=== PATIENT | female | born 1990 | race Caucasian/White ===

== ENCOUNTER → 2017-08-13 | Outpatient (CLI) | payer OTHER | LOC: M RAD 15:51 | DX: N92.6 Irregular menstruation, unspecified (principal); Q51.6 Embryonic cyst of cervix; N83.291 Other ovarian cyst, right side | CPT/HCPCS: 76856 ==

== ENCOUNTER → 2021-06-14 | Outpatient (CLI) | payer OTHER ==
[~2021-06-14] MED LIST: DOXY100T OR; IBUP800T OR; METHYLERGONOVINE PO
[2021-06-14 13:31] LABS: BASO % 0.7 % (0.0-1.0); EOS # 0.1 10^3/uL (0.0-0.5); EOS % 2.8 % (0.0-3.0); HEMATOCRIT 44.3 % (36.0-47.0); HEMOGLOBIN 14.6 g/dl (12.0-15.5); LYMPH # 1.7 10^3/uL (1.5-5.0); LYMPH % 37.7 % (24.0-44.0); MEAN CORPUSCULAR HEMOGLOBIN 30.2 pg (27.0-33.0); MEAN CORPUSCULAR VOLUME 91.5 fl (80.0-96.0); MONO # 0.3 10^3/uL (0.0-0.8); MONO % 5.9 % (2.0-8.0); NEUTROPHILS # 2.4 10^3/uL (1.5-8.5); NEUTROPHILS % 52.7 % (36.0-66.0); PLATELET COUNT, AUTOMATED 304 10^3/uL (150-450); RED BLOOD COUNT 4.84 10^6/uL (4.00-5.40); WHITE BLOOD COUNT 4.6 10^3/uL (4.0-10.0)
[2021-06-14 13:52] LABS: HEMOGLOBIN A1c 5.2 %
[2021-06-14 14:06] LABS: ALT/SGPT 20 U/L (12-78); BLOOD UREA NITROGEN 12 MG/DL (7-18); CALCIUM LEVEL 9.3 MG/DL (8.5-10.1); CARBON DIOXIDE LEVEL 29 MEQ/L (21-32); CHLORIDE LEVEL 106 MEQ/L (98-107); CREATININE FOR GFR 0.91 MG/DL (0.55-1.30); GLOMERULAR FILTRATION RATE > 60.0 (>60); GLUCOSE, FASTING 89 MG/DL (70-100); POTASSIUM SERUM 3.9 MEQ/L (3.5-5.1); SODIUM LEVEL 140 MEQ/L (136-145)
[2021-06-14 14:07] LABS: ALBUMIN 3.8 GM/DL (3.2-5.2); BILIRUBIN,TOTAL 1.5 MG/DL (0.2-1.0); CHOLESTEROL LEVEL 147 MG/DL (<200); CHOLESTEROL RISK RATIO 4.741 (<5); HDL CHOLESTEROL 31 MG/DL (>40); LDL CHOLESTEROL 99 MG/DL (<100); NON-HDL-C 116 MG/DL; TOTAL PROTEIN 7.3 GM/DL (6.4-8.2); TRIGLYCERIDES LEVEL 85 MG/DL (<150)
== END ==
LOC: M PLALAB 10:28
PROVIDERS: ATTEND Physician Assistant Medical
DX: Z12.11 Encounter for screening for malignant neoplasm of colon (principal); Z13.220 Encounter for screening for lipoid disorders; Z13.1 Encounter for screening for diabetes mellitus

== ENCOUNTER → 2021-06-24 | Outpatient (CLI) | payer OTHER ==
--- NOTE | 2021-06-24 14:23 | REP ---
INDICATION: LIPOMA OF HEAD, EVAL FOREHEAD FOR LIPOMA COMPARISON: None. TECHNIQUE: B-mode ultrasound using high-frequency transducer.. FINDINGS: Directed ultrasound examination along the left side of the forehead at the site of palpable lump demonstrates small ovoid hyperechoic structure in the subcutaneous tissue measuring 14 x 3 x 12 mm which may represent small lipoma. IMPRESSION: Small ovoid subcutaneous lesion may represent lipoma. <Electronically signed by David Dc > 06/24/21 [id number]
== END ==
LOC: M RAD 13:28
PROVIDERS: ATTEND Physician Assistant Medical
DX: D17.0 Benign lipomatous neoplasm of skin and subcutaneous tissue of head, face and neck (principal)

== ENCOUNTER 2023-03-19 20:45 | Emergency (ER) | payer OTHER ==
[~2023-03-19] VITALS: Ht 160 cm; Wt 123.4 kg
[2023-03-20] MEDS ORDERED: ACETAMINOPHEN 325 MG TAB PO ONE (02:50)
[2023-03-20] MEDS ORDERED: IBUPROFEN 600MG TAB PO ONE (03:55)
[2023-03-20] MEDS ORDERED: OXYCODONE/APAP 5MG/325MG(HOME DOSE PACK) PO ONE (03:55)
[2023-03-20] MEDS ORDERED: oxyCODONE 5MG TAB PO ONE (03:55)
[2023-03-20 04:00] VITALS: BP 136/77; TEMP 98.9; O2SAT 99
== END 2023-03-20 04:30 | disposition home or self-care (01) ==
LOC: M ED 20:45
DX: S40.012A Contusion of left shoulder, initial encounter (principal); W10.8XXA Fall (on) (from) other stairs and steps, initial encounter; Y92.009 Unspecified place in unspecified non-institutional (private) residence as the place of occurrence of the external cause; Y93.01 Activity, walking, marching and hiking; Y99.8 Other external cause status; Z91.011 Allergy to milk products; Z88.1 Allergy status to other antibiotic agents; Z79.899 Other long term (current) drug therapy